=== PATIENT | male | born 1945 | race Caucasian/White ===

== ENCOUNTER → 2021-02-17 | Outpatient (CLI) | payer OTHER | LOC: RAD 15:40 | DX: J44.9 Chronic obstructive pulmonary disease, unspecified (principal); R63.4 Abnormal weight loss | CPT/HCPCS: 71046 ==

== ENCOUNTER 2021-05-27 10:37 | Emergency (ER) | payer OTHER ==
[2021-05-27 11:29] LABS: HEMOGLOBIN 16.4 gm/dl (14.0-17.5); RED BLOOD COUNT 5.06 M/UL (4.20-5.50); WHITE BLOOD COUNT 11.8 K/UL (4.5-11.0)
[2021-05-27 12:08] LABS: BUN/CREATININE RATIO 19 (0-10)
== END 2021-05-27 15:26 | disposition home or self-care (01) ==
LOC: ER1 10:37
PROVIDERS: Emergency Medicine
DX: U07.1 COVID-19 (principal); I95.1 Orthostatic hypotension; F17.200 Nicotine dependence, unspecified, uncomplicated; K21.9 Gastro-esophageal reflux disease without esophagitis
CPT/HCPCS: 70450; 71045; 80048; 81001; 82962; 83735; 85025; 93005; 99284; U0002

== ENCOUNTER → 2021-06-16 | Outpatient (CLI) | payer MEDICARE, OTHER | LOC: KOH-I 08:15 | DX: R10.11 Right upper quadrant pain (principal) | CPT/HCPCS: 76705 ==

== ENCOUNTER 2021-08-19 19:08 | Inpatient (IN) | payer MEDICARE, OTHER ==
[~2021-08-19] VITALS: Ht 172.7 cm; Wt 61.7 kg
[2021-08-19 20:22] LABS: HEMOGLOBIN 15.1 gm/dl (14.0-17.5); RED BLOOD COUNT 4.81 M/UL (4.20-5.50); WHITE BLOOD COUNT 22.9 K/UL (4.5-11.0)
[2021-08-19 20:45] LABS: BUN/CREATININE RATIO 21 (0-10)
[2021-08-20 02:42] LABS: HEMOGLOBIN 13.5 gm/dl (14.0-17.5)
[2021-08-20 03:06] LABS: BUN/CREATININE RATIO 21 (0-10)
[2021-08-20 03:15] LABS: RED BLOOD COUNT 4.32 M/UL (4.20-5.50)
[2021-08-20] MEDS ORDERED: GABAPENTIN800 MG PO (10:34)
[2021-08-20] MEDS ORDERED: PROVENTIL HFA6.7 GM INH (10:35)
[2021-08-20] MEDS ORDERED: SYMBICORT 16010.2 GM INH (10:35)
[2021-08-20] MEDS ORDERED: MIRTAZAPINE15 MG PO (10:36)
[2021-08-20] MEDS ORDERED: ECOTRIN81 MG PO (10:37)
[2021-08-21 04:02] LABS: BUN/CREATININE RATIO 14 (0-10)
[2021-08-21 04:07] LABS: HEMOGLOBIN 12.9 gm/dl (14.0-17.5); RED BLOOD COUNT 4.11 M/UL (4.20-5.50)
[2021-08-21 04:18] LABS: WHITE BLOOD COUNT 12.9 K/UL (4.5-11.0)
[2021-08-22 03:43] LABS: HEMOGLOBIN 12.7 gm/dl (14.0-17.5); RED BLOOD COUNT 4.12 M/UL (4.20-5.50); WHITE BLOOD COUNT 10.6 K/UL (4.5-11.0)
[2021-08-22 04:18] LABS: BUN/CREATININE RATIO 9 (0-10)
[2021-08-26 06:21] LABS: HEMOGLOBIN 13.5 gm/dl (14.0-17.5); RED BLOOD COUNT 4.46 M/UL (4.20-5.50); WHITE BLOOD COUNT 10.1 K/UL (4.5-11.0)
[2021-08-26 06:47] LABS: BUN/CREATININE RATIO 37 (0-10)
[2021-08-27 05:05] LABS: BUN/CREATININE RATIO 34 (0-10)
[2021-08-27] MEDS ORDERED: FLAGYL 250 MG250 MG PO (14:24)
[2021-08-27] MEDS ORDERED: LEVOFLOXACIN750 MG PO (14:24)
--- NOTE | 2021-08-27 16:24 | NUR ---
CALLED REPORT TO VERONICA MARR AT [facility] AT 16:23.
== END 2021-08-27 17:55 | DRG 871 ==
LOC: ER1 19:08 → MED SURG 4 23:04 → CDU 23:04 → MED SURG 4 08-20 08:00
PROVIDERS: Internal Medicine; Physician Assistant; Physician Assistant Medical; ADMIT Internal Medicine
PROC: 3E03329 Introduction of Other Anti-infective into Peripheral Vein, Percutaneous Approach (ICD-10-PCS; 2021-08-19)
PROC: 0HQ1XZZ Repair Face Skin, External Approach (ICD-10-PCS; principal; 2021-08-21)
DX: A41.9 Sepsis, unspecified organism (principal); J69.0 Pneumonitis due to inhalation of food and vomit; N30.00 Acute cystitis without hematuria; J44.0 Chronic obstructive pulmonary disease with (acute) lower respiratory infection; Z16.12 Extended spectrum beta lactamase (ESBL) resistance; Z20.822 Contact with and (suspected) exposure to COVID-19; F17.210 Nicotine dependence, cigarettes, uncomplicated; G89.4 Chronic pain syndrome; W18.30XA Fall on same level, unspecified, initial encounter; M19.90 Unspecified osteoarthritis, unspecified site; I10 Essential (primary) hypertension; B96.20 Unspecified Escherichia coli [E. coli] as the cause of diseases classified elsewhere; Z79.82 Long term (current) use of aspirin; Z82.49 Family history of ischemic heart disease and other diseases of the circulatory system; Y92.009 Unspecified place in unspecified non-institutional (private) residence as the place of occurrence of the external cause
CPT/HCPCS: 0240U; 12013; 36415; 51701; 70450; 71045; 71046; 72125; 80048; 80053; 81001; 82550; 82553; 83605; 83690; 83735; 84484; 85025; 85027; 87040; 87077; 87086; 87186; 87205; 93005; 94640; 94664; 94760; 96372; 96374; 96375; 96376; 97116; 97116-GP-CQ; 97161; 97166; 99285; G0378; J0456; J0696; J1335; J1650; J2543; J3370; J7030; J7070; Q9967

== ENCOUNTER 2021-11-05 11:41 | Emergency (ER) | payer MEDICARE, OTHER ==
[~2021-11-05 11:41] MED LIST: ECOTRIN81 MG PO; FLAGYL 250 MG250 MG PO; GABAPENTIN800 MG PO; LEVOFLOXACIN750 MG PO; MIRTAZAPINE15 MG PO; PROVENTIL HFA6.7 GM INH; SYMBICORT 16010.2 GM INH
[2021-11-05 12:46] LABS: HEMOGLOBIN 16.2 gm/dl (14.0-17.5); RED BLOOD COUNT 5.22 M/UL (4.20-5.50)
[2021-11-05 13:18] LABS: BUN/CREATININE RATIO 29 (0-10)
== END 2021-11-05 18:03 | disposition home or self-care (01) ==
LOC: ER1 11:41
PROVIDERS: Physician Assistant Medical
DX: R10.9 Unspecified abdominal pain (principal); F17.210 Nicotine dependence, cigarettes, uncomplicated
CPT/HCPCS: 80053; 81001; 83605; 85025; 99284; Q9967